=== PATIENT | female | born 1995 | race Caucasian/White ===

== ENCOUNTER 2021-01-24 13:11 | Emergency (ER) | payer OTHER ==
[2021-01-24 13:25] VITALS: BP 125/84; PULSE 90; TEMP 98.2; BMI 20.5
[2021-01-24] MEDS ORDERED: LIDOCAINE 5% TOPICAL PATCH TP ONE (14:35)
[2021-01-24] MEDS ORDERED: METHOCARBAMOL 500 MG TABLET PO ONE (14:35)
[2021-01-24] MEDS ORDERED: KETOROLAC TROMETHAMINE 60 MG/2 ML VIAL IM ONE (14:35)
[2021-01-24] MEDS ORDERED: KETOROLAC TROMETHAMINE 30 MG/1 ML VIAL ONE (14:38)
[2021-01-24] MEDS ORDERED: METHOCARBAMOL 500 MG TABLET ONE (14:38)
[2021-01-24] MEDS ORDERED: LIDOCAINE 5% TOPICAL PATCH ONE (14:38)
== END 2021-01-24 15:53 | disposition home or self-care (01) ==
LOC: JERFT 13:11
PROC: 3E0233Z Introduction of Anti-inflammatory into Muscle, Percutaneous Approach (ICD-10-PCS; principal; 2021-01-24)
DX: M54.2 Cervicalgia (principal); M54.6 Pain in thoracic spine
CPT/HCPCS: 72040-TC; 72070-TC-FY; 99284-25